=== PATIENT | female | born 1990 ===

== ENCOUNTER 2020-08-14 18:58 | Emergency (ER) | payer SELFPAY ==
[2020-08-14 21:22] VITALS: BP 146/96
== END 2020-08-15 02:00 | disposition left against medical advice (07) ==
LOC: ED 18:58
DX: R06.00 Dyspnea, unspecified (principal); Z53.21 Procedure and treatment not carried out due to patient leaving prior to being seen by health care provider

== ENCOUNTER 2020-08-18 16:04 | Emergency (ER) | payer SELFPAY ==
[2020-08-18 16:31] VITALS: BP 122/79
--- NOTE | 2020-08-18 21:38 | Emergency Department Report ---
- General Chief Complaint: Upper Respiratory Infection Stated Complaint: NOT TASTE/CHEST PAIN Time Seen by Provider: 08/18/20 20:49 Source: patient Mode of arrival: Ambulatory Limitations: No Limitations - History of Present Illness Initial Comments: Patient is a 30-year-old female presents emergency room complaints of URI symptoms that began 7 days ago. She has associated cough with mucus production. She states that she lost her sense of smell and taste. She states that she also has chest discomfort and back discomfort after frequent coughing. She denies any vomiting, diarrhea, fever, sore throat, ear pain, shortness of breath. She denies any past medical history. No allergies to medications. Last menstrual cycle 07/21/2020. She denies any possibility of . She denies any known sick contacts or recent travel. - Related Data Allergies Allergy/AdvReac Type Severity Reaction Status Date / Time No Known Allergies Allergy Unverified 08/14/20 21:21 ED Review of Systems ROS: Stated complaint: NOT TASTE/CHEST PAIN Other details as noted in HPI Comment: All other systems reviewed and negative ED Past Medical Hx - Past Medical History Previous Medical History?: No - Surgical History Past Surgical History?: Yes Additional Surgical History: C section ED Physical Exam - General Limitations: No Limitations General appearance: alert, in no apparent distress - Head Head exam: Present: atraumatic, normocephalic - Eye Eye exam: Present: normal appearance - ENT ENT exam: Present: normal orophraynx, mucous membranes moist, TM's normal bilaterally, normal external ear exam - Respiratory Respiratory exam: Present: normal lung sounds bilaterally. Absent: respiratory distress, wheezes, rales, rhonchi, stridor, chest wall tenderness, accessory muscle use, decreased breath sounds, prolonged expiratory - Cardiovascular Cardiovascular Exam: Present: regular rate, normal rhythm, normal heart sounds. Absent: systolic murmur, diastolic murmur, rubs, gallop - Neurological Exam Neurological exam: Present: alert, oriented X3 - Psychiatric Psychiatric exam: Present: normal affect, normal mood - Skin Skin exam: Present: warm, dry, intact ED Course Vital Signs 08/18/20 16:30 Temperature 98.5 F Pulse Rate 71 Respiratory 20 Rate Blood Pressure 122/79 O2 Sat by Pulse 99 Oximetry ED Medical Decision Making - Medical Decision Making Patient is a 30-year-old female presents emergency room complaints of URI symptoms that began 7 days ago. She has associated cough with mucus production. She states that she lost her sense of smell and taste. She states that she also has chest discomfort and back discomfort after frequent coughing. She denies any vomiting, diarrhea, fever, sore throat, ear pain, shortness of breath. She denies any past medical history. No allergies to medications. Amber rm menstrual cycle 07/21/2020. She denies any possibility of . She denies any known sick contacts or recent travel. Vitals are normal. Breath sounds are clear bilaterally, no wheezing, no rales, no rhonchi, normal oropharynx, normal TMs and canals, no sinus tenderness. Advised patient chest x-ray and a EKG secondary to cough and chest pain. Symptoms likely related to a viral URI. Chest x-ray ordered to rule out pneumonia. Patient was agreeable with plan. I was advised by nurse that shortly after examination patient eloped from the emergency department. Patient is alert and oriented x4, she eloped prior to receiving a full medical examination, she has no distracting injury. Critical care attestation.: If time is entered above; I have spent that time in minutes in the direct care of this critically ill patient, excluding procedure time. ED Disposition Clinical Impression: Cough, Atypical chest pain Disposition: - ELOPED Is pt being admited?: No Does the pt Need Aspirin: No Condition: Stable Instructions: Chest Pain (ED) Referrals: PRIMARY CARE, [Primary Care Provider] - [facility]
== END 2020-08-18 21:00 | disposition left against medical advice (07) ==
LOC: ED 16:04
DX: R05 Cough (principal); R07.89 Other chest pain
CPT/HCPCS: 99281

== ENCOUNTER 2021-08-25 18:36 | Emergency (ER) | payer SELFPAY ==
[2021-08-25] MEDS ORDERED: ALPRAZolam 1 MG TAB PO ONE (19:07)
--- NOTE | 2021-08-25 19:07 | Emergency Department Report ---
ED General Adult HPI - General Chief complaint: Anxiety Stated complaint: PANIC ATTACK Time Seen by Provider: 08/25/21 18:47 Source: patient, RN notes reviewed, old records reviewed Mode of arrival: Ambulatory Limitations: No Limitations - History of Present Illness Initial comments: The patient was evaluated in the emergency department for symptoms described in the history of present illness. He/she was evaluated in the context of the global COVID-19 pandemic, which necessitated consideration that the patient might be at risk for infection with the virus that causes COVID-19. Institutional protocols and algorithms that pertain to the evaluation of patients at risk for COVID-19 are in a state of rapid change based on information released by regulatory bodies including the CDC and federal and state organizations. These policies and algorithms were followed during the patient's care in the emergency department. Please note that these policies, procedures and recommendations changed on a rapid basis. The patient is a 31-year-old female. She is not known to myself previously. She reports that she is not . She presents to the ER today with complaints of painless panic attack and anxiety. The patient, the patient indicates she cannot think of a reason as to why she might be having a panic attack and anxiety. She denies physical pain. She denies homicidality and suicidality. She denies the possibility of . During the history and physical examination, the patient then opens up, and endorses that she recreationally consumed methamphetamines yesterday, and she is feeling very anxious about this yesterday. She also reports that she consumed alcohol yesterday, and that she feels a little bit hung over. The patient has not attempted de-escalation techniques, or self breathing techniques. The patient reports that she was driven here by her significant other. -: Sudden Severity scale (0 -10): 0 - Related Data Home Medications Medication Instructions Recorded Confirmed Last Taken No Known Home Medications [No 08/25/21 08/25/21 Unknown Reported Home Medications] Allergies Allergy/AdvReac Type Severity Reaction Status Date / Time No Known Allergies Allergy Verified 08/25/21 18:38 ED Review of Systems ROS: Stated complaint: PANIC ATTACK Other details as noted in HPI Constitutional: denies: fever Eyes: denies: eye discharge ENT: denies: dental pain, epistaxis Respiratory: denies: cough Cardiovascular: denies: chest pain Gastrointestinal: denies: abdominal pain Neurological: weakness Psychiatric: anxiety. denies: homicidal thoughts, suicidal thoughts ED Past Medical Hx - Past Medical History Hx Asthma: Yes Additional medical history: PANIC ATTACK /SINUSES - Surgical History Additional Surgical History: C section - Social History Smoking Status: Never Smoker Substance Use Type: None - Medications Home Medications: Home Medications Medication Instructions Recorded Confirmed Last Taken Type No Known Home Medications [No 08/25/21 08/25/21 Unknown History Reported Home Medications] ED Physical Exam - General Limitations: No Limitations General appearance: alert, anxious - Head Head exam: Present: atraumatic, normocephalic - Eye Eye exam: Present: normal appearance, EOMI. Absent: nystagmus - ENT ENT exam: Present: normal exam, normal orophraynx, mucous membranes moist, normal external ear exam - Neck Neck exam: Present: normal inspection, full ROM. Absent: tenderness, meningismus - Respiratory Respiratory exam: Present: normal lung sounds bilaterally. Absent: respiratory distress, wheezes, rales, rhonchi, stridor, decreased breath sounds - Cardiovascular Cardiovascular Exam: Present: regular rate, normal rhythm, normal heart sounds. Absent: bradycardia, tachycardia, irregular rhythm, systolic murmur, diastolic murmur, rubs, gallop - GI/Abdominal GI/Abdominal exam: Present: soft. Absent: distended, tenderness, guarding, rigid, pulsatile mass - Extremities Exam Extremities exam: Present: normal inspection, full ROM, other (2+ pulses noted i n the bilateral upper and lower extremities. There is no palpable cord. negative Homans sign. Muscular compartments are soft. The pelvis is stable.). Absent: pedal edema, calf tenderness - Back Exam Back exam: Present: normal inspection, full ROM. Absent: tenderness, CVA tenderness (R), CVA tenderness (L), paraspinal tenderness, vertebral tenderness - Neurological Exam Neurological exam: Present: alert, oriented X3, other (No facial droop. Tongue midline. Extraocular movements intact bilaterally. Facial sensation intact to light touch in V1, V2, V3 distribution bilaterally. 5 and a 5 strength in 4 extremities. Sensation intact to light touch in 4 extremities.). Absent: motor sensory deficit - Psychiatric Psychiatric exam: Present: agitated, anxious. Absent: homicidal ideation, suicidal ideation - Skin Skin exam: Present: warm, dry, intact, normal color. Absent: rash ED Course Vital Signs 08/25/21 08/25/21 08/25/21 18:46 18:47 18:48 Temperature 97.9 F 98 F Pulse Rate 73 132 H Respiratory 20 24 Rate Blood Pressure Blood Pressure 131/87 [Right] O2 Sat by Pulse 100 99 99 Oximetry 08/25/21 18:53 Temperature 97.5 F L Pulse Rate 71 Respiratory 22 Rate Blood Pressure 111/75 Blood Pressure [Right] O2 Sat by Pulse 100 Oximetry ED Medical Decision Making - Lab Data Result diagrams: 08/25/21 19:20 Vital Signs 08/25/21 08/25/21 08/25/21 18:46 18:47 18:48 Temperature 97.9 F 98 F Pulse Rate 73 132 H Respiratory 20 24 Rate Blood Pressure Blood Pressure 131/87 [Right] O2 Sat by Pulse 100 99 99 Oximetry 08/25/21 18:53 Temperature 97.5 F L Pulse Rate 71 Respiratory 22 Rate Blood Pressure 111/75 Blood Pressure [Right] O2 Sat by Pulse 100 Oximetry Lab Results 08/25/21 08/25/21 08/25/21 Range/Units 19:20 19:20 19:20 Sodium 139 (137-145) mmol/L Potassium 3.1 L (3.6-5.0) mmol/L Chloride 100.7 (98-107) mmol/L Carbon Dioxide 19 L (22-30) mmol/L Anion Gap 22 mmol/L BUN 8 (7-17) mg/dL Creatinine 0.6 (0.6-1.2) mg/dL Estimated GFR > 60 ml/min BUN/Creatinine Ratio 13 % Glucose 90 (65-100) mg/dL Calcium 9.8 (8.4-10.2) mg/dL Magnesium 2.00 (1.7-2.3) mg/dL Total Creatine Kinase 116 (30-135) units/L TSH 1.800 (0.270-4.200) mlU/mL HCG, Quant < 2 (0-4) mIU/mL Salicylates (2.8-20.0) mg/dL Acetaminophen (10.0-30.0) ug/mL Plasma/Serum Alcohol (0-0.07) % 08/25/21 08/25/21 08/25/21 Range/Units 19:20 19:20 19:20 Sodium (137-145) mmol/L Potassium (3.6-5.0) mmol/L Chloride (98-107) mmol/L Carbon Dioxide (22-30) mmol/L Anion Gap mmol/L BUN (7-17) mg/dL Creatinine (0.6-1.2) mg/dL Estimated GFR ml/min BUN/Creatinine Ratio % Glucose (65-100) mg/dL Calcium (8.4-10.2) mg/dL Magnesium (1.7-2.3) mg/dL Total Creatine Kinase (30-135) units/L TSH (0.270-4.200) mlU/mL HCG, Quant (0-4) mIU/mL Salicylates < 0.3 L (2.8-20.0) mg/dL Acetaminophen 5.0 L (10.0-30.0) ug/mL Plasma/Serum Alcohol < 0.01 (0-0.07) % - Medical Decision Making Differential diagnosis, including but not limited to: Encounter for medical screening examination, anxiety attack, panic attack, electrolyte derangement, history of methamphetamine use, history of alcohol use Assessment and plan: 31-year-old female, who was afebrile, with reassuring vital signs who is anxious but clinically sober, with a GCS of 15, who does not meet criteria for 1013 hold or involuntary hold. We discussed avoidance of alcohol, and methamphetamines. We also discussed self calming techniques, and outpatient resources, such as online therapy, or telemedicine/teletherapy. Patient felt improved after benzodiazepines here in the emergency room. She has a sober adult who can pick her up. She can participate in diet and lifestyle modifications to address her mild hypokalemia. Critical care attestation.: If time is entered above; I have spent that time in minutes in the direct care of this critically ill patient, excluding procedure time. ED Disposition Clinical Impression: History of panic attacks, Encounter for medical screening examination, Encounter for behavioral health screening, History of methamphetamine use, History of alcohol use, Hypokalemia Disposition: 01 HOME / SELF CARE / HOMELESS Is pt being admited?: No Does the pt Need Aspirin: No Condition: Stable Additional Instructions: We recommend that the patient avoid consumption of alcohol and methamphetamines. We recommend that the patient take a multivitamin on a daily basis. We also recommend that the patient consume foods that are high in potassium, such as banana, avocado, or potato. Advance diet as tolerated, drink plenty of fluids. Patient may also participate in self breathing exercises, calming exercises, and may also participate in outpatient remote therapy, or teletherapy, please contact your insurance provider to find out what teletherapy groups are in your network. Patient may also seek else applications on her cell phone, such as mindfulness applications, meditation applications, or certain therapy applications, such as talk space. Recommend follow-up with your primary care doctor within the next month. Recommend follow-up with a mental health specialist within the next week. Please return to the emergency room right away with new pain, worsened pain, migration of pain, projectile vomiting, change in mental status, confusion, inability tolerate liquid feeds, new, worsened or different symptoms not present on the initial emergency room evaluation Referrals: PRIMARY CARE, [Primary Care Provider] - 3-5 Days
[2021-08-25 20:12] LABS: Blood Urea Nitrogen 8 mg/dL (7-17); Calcium 9.8 mg/dL (8.4-10.2); Hemolysis Index 0
[2021-08-25 20:13] LABS: BUN/Creatinine Ratio 13
[2021-08-25] MEDS ORDERED: POTASSIUM CHLORIDE ER 20 MEQ TAB PO ONE (20:45)
[2021-08-25 21:10] VITALS: BP 125/78
== END 2021-08-25 21:09 | disposition home or self-care (01) ==
LOC: ED 18:36
DX: J45.909 Unspecified asthma, uncomplicated (principal); F41.0 Panic disorder [episodic paroxysmal anxiety]; E87.6 Hypokalemia
CPT/HCPCS: 36415; 80048; 80320; 82550; 83735; 84443; 84702; 99283; G0480

== ENCOUNTER 2022-02-10 19:13 | Emergency (ER) | payer SELFPAY ==
[2022-02-10 20:44] VITALS: BP 160/79
== END 2022-02-11 00:10 | disposition left against medical advice (07) ==
LOC: ED 19:13
DX: F41.0 Panic disorder [episodic paroxysmal anxiety] (principal); Z53.21 Procedure and treatment not carried out due to patient leaving prior to being seen by health care provider